=== PATIENT | male | born 1970 | race African-American/Black ===

== ENCOUNTER 2021-08-12 21:21 | Emergency (ER) | payer MEDICAID ==
[~2021-08-12] VITALS: Ht 180.3 cm; Wt 80.0 kg
[2021-08-13] MEDS ORDERED: PERM60CR4 TP (00:26)
[2021-08-13 01:41] VITALS: BP 144/88
== END 2021-08-13 02:03 | disposition home or self-care (01) ==
LOC: ER 21:21
DX: S09.8XXA Other specified injuries of head, initial encounter (principal); X58.XXXA Exposure to other specified factors, initial encounter; Y93.89 Activity, other specified; Y92.89 Other specified places as the place of occurrence of the external cause; Y99.8 Other external cause status; B86 Scabies
CPT/HCPCS: 99284

== ENCOUNTER 2021-08-20 01:29 | Emergency (ER) | payer MEDICAID ==
[~2021-08-20] VITALS: Ht 170.2 cm; Wt 60.0 kg
[~2021-08-20 01:29] MED LIST: PERM60CR4 TP
[2021-08-20] MEDS ORDERED: ACETAMINOPHEN 325MG TABLET PO STA (02:20)
[2021-08-20] MEDS ORDERED: SODIUM CHLORIDE 0.9% 1,000 ML IV ONE (02:30)
[2021-08-20 04:24] LABS: MEAN CORPUSCULAR HEMOGLOBIN 24.9 pg (28.0-32.0); MEAN CORPUSCULAR VOLUME 80.2 fL (80.0-94.0); PLATELET 338 x1000/uL (130-400); RED BLOOD CELL COUNT 3.99 mill/uL (4.7-6.1); RED CELL DISTRIBUTION WIDTH 16.3 % (11.6-14.6)
[2021-08-20 04:36] LABS: CHLORIDE 106 mEq/L (98-107)
[2021-08-20 06:34] VITALS: BP 93/57
[2021-08-20 07:30] LABS: PLATELET ESTIMATE NORMAL
== END 2021-08-20 06:40 | disposition home or self-care (01) ==
LOC: ER 01:29
DX: R53.1 Weakness (principal)
CPT/HCPCS: 36415; 71045; 80053; 83605; 84484; 85025; 87040; 93005; 96360; 99285; J7030